=== PATIENT | female | born 2000 | race Caucasian/White ===

== ENCOUNTER 2021-05-05 11:22 | Outpatient (REF) | payer OTHER, SELFPAY ==
[2021-05-05 14:25] LABS: Alanine Aminotransferase 14 U/L (0-31); Albumin Level 4.3 g/dL (3.5-5.0); Alkaline Phosphatase 49 U/L (39-117); Anion Gap 13 (12-20); Aspartate Amino Transferase 15 U/L (5-31); Bilirubin Total 0.7 mg/dL (0.0-1.0); Blood Urea Nitrogen 8 mg/dL (9-16); Calcium 9.5 mg/dL (8.4-10.2); Carbon Dioxide 25 mmol/L (22-29); Chloride 105 mmol/L (96-108); Cholesterol 207 mg/dL; Estimated Glomerular Filt Rate > 60; Glucose Fasting 99 mg/dL (60-99); HDL Cholesterol 48 mg/dL; LDL Cholesterol Calculated 141 mg/dl; Potassium 4.8 mmol/L (3.3-5.1); Sodium 138 mmol/L (135-145); Total Protein 7.3 g/dL (6.5-8.0); Triglycerides 93 mg/dL
[2021-05-05 14:47] LABS: TSH reflex Free T4 0.82 uIU/mL (0.32-4.0)
[2021-05-05 17:18] LABS: Appearance Urine CLEAR; Color Urine YELLOW; Glucose Urine UA NEG (NEG); Leukocyte Esterase Urine NEG (NEG); Nitrite Urine NEG (NEG); PH 6.5 (5.0-8.0); Urine Blood NEG (NEG); Urine Ketones NEG (NEG); Urine Protein NEG (NEG-TRACE)
== END 2021-05-05 11:23 | disposition home or self-care (01) ==
LOC: HO.HMGCLDS 11:22
PROVIDERS: PCP Nurse Practitioner Family; Visit Provider Nurse Practitioner Family
DX: Z00.00 Encounter for general adult medical examination without abnormal findings (principal)
CPT/HCPCS: 36415; 80053; 80061; 81003; 84443

== ENCOUNTER 2021-05-12 09:49 | Outpatient (REF) | payer OTHER, SELFPAY ==
[2021-05-12 16:38] LABS: CT PCR NOT DETECTED (Not Detect.); NG PCR NOT DETECTED (Not Detect.)
== END 2021-05-12 09:50 | disposition home or self-care (01) ==
LOC: HO.LAB 09:49
PROVIDERS: PCP Nurse Practitioner Family; Visit Provider Advanced Practice Midwife
DX: Z01.411 Encounter for gynecological examination (general) (routine) with abnormal findings (principal); Z11.3 Encounter for screening for infections with a predominantly sexual mode of transmission; R10.2 Pelvic and perineal pain; R14.0 Abdominal distension (gaseous); Z20.2 Contact with and (suspected) exposure to infections with a predominantly sexual mode of transmission
CPT/HCPCS: 87491; 87591; 88142

== ENCOUNTER 2021-06-03 10:47 | Outpatient (REF) | payer OTHER, SELFPAY ==
--- NOTE | ~2021-06-03 | US_ITS ---
EXAMINATION: US PELVIS CLINICAL INFORMATION: Abdominal distention COMPARISON: None TECHNIQUE: Ultrasound of the pelvis is performed using both transabdominal and transvaginal transducers along with Doppler. Transvaginal imaging is performed due to inadequate visualization transabdominally. FINDINGS: The uterus is anteverted and measures 5.6 x 2.7 x 4.8 cm in dimension. No focal uterine lesion is seen. Endometrial thickness is normal measuring 0.2 cm. The ovaries are normal-appearing. The right ovary measures 1.9 x 1.9 x 2.2 cm. The left ovary measures 2 1 x 1.1 x 1.2 cm. There is no fluid in the pelvis. US/US pelvic and transvaginal IMPRESSION: Normal pelvic ultrasound.
== END 2021-06-03 10:48 | disposition home or self-care (01) ==
LOC: HO.US 10:47
PROVIDERS: PCP Nurse Practitioner Family; Visit Provider Advanced Practice Midwife
DX: R14.0 Abdominal distension (gaseous) (principal); R10.2 Pelvic and perineal pain
CPT/HCPCS: 76830; 76856

== ENCOUNTER → 2021-06-17 12:01 | Outpatient (BNVA) | payer OTHER, SELFPAY | PROVIDERS: PCP Nurse Practitioner Family; Visit Provider Advanced Practice Midwife ==

== ENCOUNTER 2023-04-07 09:07 | Outpatient (REF) | payer OTHER, SELFPAY | END 2023-04-07 09:08 | disposition home or self-care (01) | LOC: HO.HMGCLDS 09:07 | PROVIDERS: PCP Nurse Practitioner Family; Visit Provider Nurse Practitioner Family | DX: Z00.00 Encounter for general adult medical examination without abnormal findings (principal) | CPT/HCPCS: 36415; 80053; 84443; 85025 ==

== ENCOUNTER 2023-04-11 07:28 | Outpatient (AMB) | payer OTHER, SELFPAY ==
--- NOTE | 2023-04-11 07:34 | MHC.PC.OV ---
Vital Signs 04/11/23 07:35 Height 5 ft 6 in Weight 158 lb 6 oz BMI 25.6 BP 100/68 Blood Pressure Location Rt brachial Position Sitting Pulse 55 Pulse Source Pulse Oximeter Pulse Oximetry (%) 99 Oxygen Delivery Method Room Air Intake Visit Reasons: PE Allergies No Known Allergies Allergy (Verified 04/11/23 07:37) Medication List - Last Reconciled 04/11/23 by AZUCENA Nguyen No Known Home Meds Tobacco use date assessed: 04/11/23 Dental Screening Dental Screen Date: 04/11/23 Did you have a dental visit in the last 12 months?: Yes Did you have a dental problem in the last 6 months where you did not have access to dental care?: No Was dental information given to patient?: Patient has dentist HPI PE HPI Details Pt is here for a PE. Labs were already performed. Has a technology lab teacher. COUNTS INCLUDE 234 BEDS AT THE [facility] Medical History Migraine with aura Surgical History Hx of wisdom tooth extraction Family History Paternal Grandmother Substance use disorder Sister Mental health disorder Maternal Aunt Mental health disorder Social History Housing: House Alcohol intake: current Alcohol intake frequency: a few times a week Patient Tobacco Use Status: Never used Tobacco e-Cigarette/Vaping Use: Never Used Second Hand Smoke Exposure: No service: No Current occupational status: employed Current occupation: [employer] and works at [employer] Current occupational exposures/hazards: Yes Sexual orientation: Straight/Heterosexual Gender identity: Female Cognitive needs: No Hearing needs: No Vision needs: No Female Reproductive History Menstrual Age of Menarche: 11 Questionnaire PHQ-9 Over the last 2 weeks, how often have you been bothered by any of the following problems? 1. Little interest or pleasure in doing things: not at all 2. Feeling down, depressed, or hopeless: several days 3. Trouble falling or staying asleep, or sleeping too much: not at all 4. Feeling tired or having little energy: several days 5. Poor appetite or overeating: not at all 6. Feeling bad about yourself - or that you are a failure or have let yourself or your family down: not at all 7. Trouble concentrating on things, such as reading the newspaper or watching television: not at all 8. Moving or speaking so slowly that other people could have noticed. Or the opposite - being so fidgety or restless that you have been moving around a lot more than usual: not at all 9. Thoughts that you would be better off or of hurting yourself in some way: not at all Total score: 2 Depression Screening Interpretation: Negative Depression Screening Done: Yes Source: Developed by Drs. Cali Pruett, Libby Cooper, Yair Glover and colleagues, with an educational messi from [email or web address]. Thrive Questionnaire Date Thrive assessed: 04/11/23 I am a: Patient What is your living situation today?: I have a steady place to live Within the past 12 months, did the food you bought not last and you didn't have the money to get more?: Never true Within the past 12 months, did you worry whether your food would run out before you got money to buy more?: Never true Do you have trouble paying for medicines?: No Do you have trouble getting transportation to medical appointments?: No Do you have trouble paying your heating and electricity bill?: No Do you have trouble taking care of your child, family member or friend?: No Do you have trouble with day-to-day activities such as bathing, preparing meals, shopping, managing finances, etc.?: No Are you currently unemployed and looking for a job?: No Are you interested in more education?: No AUDIT C Alcohol Use Questionnaire (AUDIT-C) 1. How often do you have a drink containing alcohol?: 2-4 times a month 2. How many drinks containing alcohol do you have on a typical day when you are drinking?: 3 or 4 3. How often do you have six or more drinks on one occasion?: Never Total Score: 3 Score Reviewed/Action Taken: Yes TAMMI-7 AMB Questionnaire TAMMI-7 Date TAMMI - 7 assessed: 04/11/23 Feeling nervous, anxious, or on edge: 2 = More than half the days Not being able to stop or control worryin = Several days Worrying too much about different things: 1 = Several days Trouble relaxin = Several days Being so restless that it is hard to sit still: 1 = Several days Becoming easily annoyed or irritable: 1 = Several days Feeling afraid as if something awful might happen: 0 = Not at all Total TAMMI-7 score (0-4 normal; 5-9 mild; 10-14 moderate; 15-21 severe): 7 Source: Developed by Drs. Cali Pruett, Libby Cooper, Yair Glover and colleagues, with an educational messi from [email or web address]. TAMMI-7 Assessment Billing TAMMI-7 Assessment Tool: TAMMI-7 Assessment 69154 Review of Systems Const Denies chills and Denies fever(s) Eyes Denies blurry vision ENT Denies vertigo, Denies dizziness and Denies sore throat Card Denies chest pain at rest, Denies chest pain with activity, Denies diaphoresis, Denies dyspnea and Denies dyspnea on exertion Resp Denies cough, Denies dyspnea, Denies dyspnea on exertion and Denies wheezing GI Denies abdominal pain, Denies melena, Denies hematochezia, Denies constipation, Denies diarrhea and Denies loose stools Denies hematuria Musc Denies numbness and Denies tingling Skin/Breast Denies lesions Neuro Denies vertigo, Denies dizziness, Denies numbness and Denies tingling Psych Denies anxiety, Denies depression, Denies homicidal ideation, Denies suicidal ideation and Denies other (substance abuse) Aller/Immun Denies wheezing Physical exam (Primary Care) Vital Signs: Last Vital Signs Pulse 55 04/11/23 07:35 BP 100/68 04/11/23 07:35 Pulse Ox 99 04/11/23 07:35 Oxygen Delivery Method Room Air 04/11/23 07:35 BMI result Body Mass Index 25.6 Tobacco/Smoking Status: Tobacco use Status Tobacco use date assessed 04/11/23 04/11/23 07:39 Patient Tobacco Use Status Never used Tobacco 04/11/23 07:39 e-Cigarette/Vaping Use Never Used 04/11/23 07:39 PHQ-9: PHQ-9 Score PHQ-9: Total score 2 04/11/23 07:41 Depression Screening Interpretation: Negative Thrive Assessment: Date of Thrive Assessment Date Thrive assessed 04/11/23 04/11/23 07:41 Const General: cooperative Nutritional Appearance: well nourished Orientation/consciousness: patient oriented x3 HENMT Head: Yes normal to inspection, Yes normocephalic and Yes atraumatic Ears: TM's normal bilaterally Eyes General: appearance normal, both eyes and all related structures Alignment and Position: alignment normal and position normal Neck Neck: Yes normal visual inspection and Yes no lymphadenopathy Thyroid: Thyroid normal Resp Effort & Inspection: normal respiratory effort Auscultation: clear to auscultation bilaterally Cardio Rate: regular rate Rhythm: regular rhythm Heart sounds: S1 normal heart sound present, S2 normal heart sound present and no murmurs GI Palpation (GI): Soft to palpation and nontender Auscultation: normal bowel sounds Skin Rashes: no rashes Neuro General: patient oriented x3, moves all extremities, no focal motor deficits and deep tendon reflexes 2+ bilaterally Romberg Test: Negative Psych Appearance: grossly normal Mental Status: mental status grossly normal Speech and movement: Normal speech and movement present Affect: normal affect Attitude: cooperative Thought process: Normal thought process present Thought content: Normal thought content present Insight: Good insight present (Psych) Judgement: Good judgement present (Psych) Assessment and Plan Assessment & Plan (1) Physical exam: Code(s): Z00.00 - Encounter for general adult medical examination without abnormal findings Plan: Labs resulted Plan The patient agreed to the use of a medical office receptionist assistant for this encounter. Scribed for MARIANELA Moncada-ABEL by Cristina Peng medical office receptionist assistant, on 04/11/2023 at 07:55 EST Coding Level of Care Code Est Pt Prev Care 18-39y(36706) Diagnoses Physical exam Z00.00 Additional Codes TAMMI-7 Assessment Billing - TAMMI-7 Assessment Tool: TAMMI-7 Assessment 32358 ([id number])
[2023-04-11 07:35] VITALS: BP 100/68; PULSE 55; O2SAT 99; BMI 25.6
== END 2023-04-11 09:18 | disposition home or self-care (01) ==
PROVIDERS: Visit Provider Nurse Practitioner Family
DX: Z00.00 Encounter for general adult medical examination without abnormal findings (principal)
CPT/HCPCS: 99395

== ENCOUNTER 2023-04-11 08:06 | Outpatient (REF) | payer OTHER, SELFPAY | END 2023-04-11 08:07 | disposition home or self-care (01) | LOC: HO.HMGCLDS 08:06 | PROVIDERS: PCP Nurse Practitioner Family; Visit Provider Nurse Practitioner Family | DX: Z00.00 Encounter for general adult medical examination without abnormal findings (principal); Z13.220 Encounter for screening for lipoid disorders | CPT/HCPCS: 36415; 80061 ==

== ENCOUNTER 2023-07-04 08:39 | Outpatient (AMB) | payer OTHER, SELFPAY ==
[2023-07-04 09:32] VITALS: BP 120/78; PULSE 83; TEMP 36.9; O2SAT 99; BMI 26.1
--- NOTE | 2023-07-04 09:32 | AM.OFFWIN_ITS ---
Intake Vital Signs 07/04/23 09:32 Height 5 ft 6 in Weight 162 lb BMI 26.1 BP 120/78 Blood Pressure Location Lt brachial Position Sitting Pulse 83 Pulse Source Pulse Oximeter Temp 98.5 F Temp Source Temporal Artery Scan Pulse Oximetry (%) 99 Oxygen Delivery Method Room Air Intake Visit Reasons: EP sore throat headache stuffy [id number] Intake Note: pt is here today for sore throat headache started yesterday Patient Tobacco Use Status: Never used Tobacco Allergies No Known Allergies Allergy (Verified 07/04/23 10:16) Medication List - Last Reconciled 07/04/23 by Jonnathan Tobias MD No Known Home Meds Do you need a note to return to daycare/school/sports/work: Yes [facility] Medical History Migraine with aura Surgical History Hx of wisdom tooth extraction Family History Paternal Grandmother Substance use disorder Sister Mental health disorder Maternal Aunt Mental health disorder Social History Housing: House Alcohol intake: current Alcohol intake frequency: a few times a week Patient Tobacco Use Status: Never used Tobacco e-Cigarette/Vaping Use: Never Used Second Hand Smoke Exposure: No service: No Current occupational status: employed Current occupation: [employer] and works at [employer] Current occupational exposures/hazards: Yes Sexual orientation: Straight/Heterosexual Gender identity: Female Cognitive needs: No Hearing needs: No Vision needs: No Female Reproductive History Menstrual Age of Menarche: 11 Physical Exam Vital Signs: Last Vital Signs Temp 98.5 F 07/04/23 09:32 Pulse 83 07/04/23 09:32 BP 120/78 07/04/23 09:32 Pulse Ox 99 07/04/23 09:32 Oxygen Delivery Method Room Air 07/04/23 09:32 BMI result Body Mass Index 26.1 Results AMB Rapid Strep AMB Rapid Strep Negative Last Edit by Praneeth Caruso CMA on 07/04/23 09 :51 Results Reviewed Results Reviewed: Laboratory Last Values Strep Scn [facility] Negative 07/04/23 09:51 Assessment & Plan Assessment & Plan Orders: Orders AMB Rapid Strep Screen Today Z13.9 - Encounter for screening, unspecified Coding
--- NOTE | 2023-07-04 09:40 | AM.OFFWIN_ITS ---
Intake Vital Signs 07/04/23 09:32 Height 5 ft 6 in Weight 162 lb BMI 26.1 BP 120/78 Blood Pressure Location Lt brachial Position Sitting Pulse 83 Pulse Source Pulse Oximeter Temp 98.5 F Temp Source Temporal Artery Scan Pulse Oximetry (%) 99 Oxygen Delivery Method Room Air Intake Visit Reasons: EP sore throat headache stuffy [id number] Patient Tobacco Use Status: Never used Tobacco Allergies No Known Allergies Allergy (Verified 07/04/23 10:16) Medication List - Last Reconciled 07/04/23 by Jonnathan Tobias MD No Known Home Meds HPI EP sore throat headache stuffy [id number] HPI Details Patient presents for a sick visit. Reporting symptoms of sinus congestion, sore throat and difficulty swallowing. 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 [facility] Medical History Migraine with aura Surgical History Hx of wisdom tooth extraction Family History Paternal Grandmother Substance use disorder Sister Mental health disorder Maternal Aunt Mental health disorder Social History Housing: House Alcohol intake: current Alcohol intake frequency: a few times a week Patient Tobacco Use Status: Never used Tobacco e-Cigarette/Vaping Use: Never Used Second Hand Smoke Exposure: No service: No Current occupational status: employed Current occupation: [employer] and works at [employer] Current occupational exposures/hazards: Yes Sexual orientation: Straight/Heterosexual Gender identity: Female Cognitive needs: No Hearing needs: No Vision needs: No Female Reproductive History Menstrual Age of Menarche: 11 Physical Exam Vital Signs: Last Vital Signs Temp 98.5 F 07/04/23 09:32 Pulse 83 07/04/23 09:32 BP 120/78 07/04/23 09:32 Pulse Ox 99 07/04/23 09:32 Oxygen Delivery Method Room Air 07/04/23 09:32 BMI result Body Mass Index 26.1 Const General: cooperative and healthy appearing Nutritional Appearance: well nourished Orientation/consciousness: patient oriented x3 Limitations: no limitations HEENT Head: Yes normal to inspection Eyes General: appearance normal, both eyes and all related structures Neck Neck: Yes normal visual inspection Chest Chest palpation & inspection: normal palpation of entire chest wall Resp Effort & Inspection: normal respiratory effort Neuro General: patient oriented x3 Results AMB Rapid Strep AMB Rapid Strep Negative Last Edit by Praneeth Caruso CMA on 07/04/23 09 :51 Results Reviewed Results Reviewed: Laboratory Last Values Strep Scn [facility] Negative 07/04/23 09:51 Assessment & Plan Assessment & Plan (1) Upper respiratory tract infection: Code(s): J06.9 - Acute upper respiratory infection, unspecified Plan: Increase fluid intake. Tylenol for aches and pains. If symptoms worsen, follow-up here for a recheck. Strep test was negative. No antibiotics needed. If symptoms worsen to follow-up here. Orders: Orders AMB Rapid Strep Screen Today Z13.9 - Encounter for screening, unspecified Coding Level of Care Code Est Pt Level 3 (05454) Diagnoses Upper respiratory tract infection J06.9
== END 2023-07-04 10:11 | disposition home or self-care (01) ==
PROVIDERS: PCP Nurse Practitioner Family; Visit Provider Internal Medicine
DX: J06.9 Acute upper respiratory infection, unspecified (principal); J02.9 Acute pharyngitis, unspecified
CPT/HCPCS: 87880; 99213

== ENCOUNTER 2024-05-09 09:35 | Outpatient (REF) | payer OTHER, SELFPAY ==
[2024-05-09 13:29] LABS: MANUAL DIFF FLAG NO
[2024-05-09 13:37] LABS: Basophils Percent Auto 0.8 % (0-2); Eosinophils Percent Auto 1.1 % (0-4); Hematocrit 40.7 % (37.0-47.0); Hemoglobin 14.2 g/dl (12.0-16.0); Imm Gran Abs Auto 0.01 X10*3/uL (0.00-0.03); Imm Gran Pct Auto 0.3 % (0.0-0.4); Lymphocytes Absolute Auto 1.3 X10*3/uL (1.2-4.9); Lymphocytes Percent Auto 34.3 % (20-40); Mean Corpuscular HGB Conc 34.9 g/dl (31.0-35.0); Mean Corpuscular Hemoglobin 31.2 pg (27.0-33.0); Mean Corpuscular Volume 89.5 fL (80.0-98.0); Mean Platelet Volume 9.9 fL (9.4-12.3); Monocytes Absolute Auto 0.4 X10*3/uL (0.1-1.2); Monocytes Percent Auto 9.8 % (2-11); Neutrophils Percent Auto 53.7 % (45-73); Platelet Count 284 X10*3/uL (160-400); Red Blood Count 4.55 X10*6/uL (4.20-5.50); Red Cell Distribution Width 11.8 % (11.0-16.0); White Blood Count 3.7 X10*3/uL (4.8-10.8)
[2024-05-09 13:59] LABS: Estimated Average Glucose 91 mg/dL; Hemoglobin A1c % 4.8 % (<6.0); Total Hemoglobin (HGBA1C) 3727.5546 umol/L
[2024-05-09 14:06] LABS: Alanine Aminotransferase 15 U/L (0-31); Albumin Level 4.1 g/dL (3.5-5.0); Alkaline Phosphatase 39 U/L (39-117); Anion Gap 10 (12-20); Aspartate Amino Transferase 18 U/L (5-31); Bilirubin Total 0.7 mg/dL (0.0-1.0); Blood Urea Nitrogen 11 mg/dL (9-16); Calcium 9.3 mg/dL (8.4-10.2); Carbon Dioxide 23 mmol/L (22-29); Chloride 109 mmol/L (96-108); Cholesterol 171 mg/dL (<200); Estimated Glomerular Filt Rate > 60; Glucose Random 84 mg/dL (60-115); HDL Cholesterol 59 mg/dL (>40); LDL Cholesterol Calculated 105 mg/dL (<100); Potassium 4.3 mmol/L (3.3-5.1); Sodium 138 mmol/L (135-145); Triglycerides 35 mg/dL (<150)
[2024-05-09 14:22] LABS: TSH reflex Free T4 0.82 uIU/mL (0.32-4.0)
[2024-05-10 04:05] LABS: HBS Num1 25.65 mIU/mL (0-7.99); ~Hepatitis B Surface Antibody REACTIVE (Nonreactive)
[2024-05-10 08:39] LABS: Varicella IgG Antibody 2.28 S/CO
[2024-05-10 08:43] LABS: Mumps Virus IgG Antibody <9.00 AU/mL
== END 2024-05-09 09:36 | disposition home or self-care (01) ==
LOC: HO.HMGCLDS 09:35
PROVIDERS: PCP Nurse Practitioner Family; Referring Provider Nurse Practitioner Family; Visit Provider Nurse Practitioner Family
DX: Z00.00 Encounter for general adult medical examination without abnormal findings (principal); Z28.39 Other underimmunization status; Z13.1 Encounter for screening for diabetes mellitus
CPT/HCPCS: 36415; 80053; 80061; 83036; 84443; 85025; 86706; 86735; 86762; 86765; 86787; 96127

== ENCOUNTER 2024-05-09 09:35 | Outpatient (AMB) | payer OTHER, SELFPAY ==
--- NOTE | 2024-05-09 09:39 | A.OFFPC_ITS ---
Vital Signs 05/09/24 09:44 Height 5 ft 6 in Weight 160 lb 4 oz BMI 25.9 BP 118/72 Blood Pressure Location Rt brachial Position Sitting Pulse 74 Pulse Source Pulse Oximeter Pulse Oximetry (%) 98 Oxygen Delivery Method Room Air Intake Visit Reasons: Annual PE Intake Note: Pt is here today for her Annual Physical. Allergies No Known Allergies Allergy (Verified 05/09/24 09:44) Medication List - Last Reconciled 05/09/24 by Ernestina Bhatt NP No Known Home Meds Tobacco use date assessed: 05/09/24 Dental Screening Dental Screen Date: 05/09/24 Did you have a dental visit in the last 12 months?: Yes Did you have a dental problem in the last 6 months where you did not have access to dental care?: No Was dental information given to patient?: Patient has dentist HPI HPI Comments History of Present Illness Details 23 y/o female patient who [facility]. Patient of [facility] [place]. Healthy denies any medical problems. Does not take any medications. She works at [employer] [facility] Medical History Migraine with aura Surgical History Hx of wisdom tooth extraction Family History Paternal Grandmother Substance use disorder Sister Mental health disorder Maternal Aunt Mental health disorder Social History Housing: House Alcohol intake: current Alcohol intake frequency: a few times a week Patient Tobacco Use Status: Never used Tobacco e-Cigarette/Vaping Use: Never Used Second Hand Smoke Exposure: No service: No Current occupational status: employed Current occupation: [employer] and works at [employer] Current occupational exposures/hazards: Yes Sexual orientation: Straight/Heterosexual Gender identity: Female Cognitive needs: No Hearing needs: No Vision needs: No Female Reproductive History Menstrual Age of Menarche: 11 Questionnaire PHQ-9 Over the last 2 weeks, how often have you been bothered by any of the following problems? 1. Little interest or pleasure in doing things: not at all 2. Feeling down, depressed, or hopeless: not at all 3. Trouble falling or staying asleep, or sleeping too much: several days 4. Feeling tired or having little energy: several days 5. Poor appetite or overeating: not at all 6. Feeling bad about yourself - or that you are a failure or have let yourself or your family down: not at all 7. Trouble concentrating on things, such as reading the newspaper or watching television: not at all 8. Moving or speaking so slowly that other people could have noticed. Or the opposite - being so fidgety or restless that you have been moving around a lot more than usual: not at all 9. Thoughts that you would be better off or of hurting yourself in some way: not at all Total score: 2 Depression Screening Interpretation: Negative Depression Screening Done: Yes 06562 - PHQ-9 Billing: Yes Source: Developed by Drs. Cali Pruett, Libby Cooper, Yair Glover and colleagues, with an educational messi from [employer]. Thrive Questionnaire Date Thrive assessed: 05/09/24 I am a: Patient What is your living situation today?: I have a steady place to live Within the past 12 months, did the food you bought not last and you didn't have the money to get more?: Never true Within the past 12 months, did you worry whether your food would run out before you got money to buy more?: Never true Do you have trouble paying for medicines?: No Do you have trouble getting transportation to medical appointments?: No Do you have trouble paying your heating and electricity bill?: No Do you have trouble taking care of your child, family member or friend?: No Do you have trouble with day-to-day activities such as bathing, preparing meals, shopping, managing finances, etc.?: No Are you currently unemployed and looking for a job?: No Are you interested in more education?: Yes Please select the resources that you would like help with: None Currently or been in a relationship where the following occur: No concerns reported THRIVE Score: 0 AUDIT C Alcohol Use Questionnaire (AUDIT-C) 1. How often do you have a drink containing alcohol?: 2-4 times a month 2. How many drinks containing alcohol do you have on a typical day when you are drinking?: 3 or 4 3. How often do you have six or more drinks on one occasion?: Less than monthly Total Score: 4 Score Reviewed/Action Taken: Yes TAMMI-7 AMB Questionnaire TAMMI-7 Date TAMMI - 7 assessed: 05/09/24 Feeling nervous, anxious, or on edge: 1 = Several days Not being able to stop or control worryin = Not at all Worrying too much about different things: 1 = Several days Trouble relaxin = Several days Being so restless that it is hard to sit still: 0 = Not at all Becoming easily annoyed or irritable: 0 = Not at all Feeling afraid as if something awful might happen: 0 = Not at all Total TAMMI-7 score (0-4 normal; 5-9 mild; 10-14 moderate; 15-21 severe): 3 Source: Developed by Drs. Cali Pruett, Libby Cooper, Yair Glover and colleagues, with an educational messi from [employer]. TAMMI-7 Assessment Billing TAMMI-7 Assessment Tool: TAMMI-7 Assessment 57848 Review of Systems Const All systems reviewed & are unremarkable except as noted in HPI and below Physical exam (Primary Care) Vital Signs: Last Vital Signs Pulse 74 05/09/24 09:44 BP 118/72 05/09/24 09:44 Pulse Ox 98 05/09/24 09:44 Oxygen Delivery Method Room Air 05/09/24 09:44 BMI result Body Mass Index 25.9 Tobacco/Smoking Status: Tobacco use Status Tobacco use date assessed 05/09/24 05/09/24 09:45 Patient Tobacco Use Status Never used Tobacco 05/09/24 09:45 e-Cigarette/Vaping Use Never Used 05/09/24 09:45 PHQ-9: PHQ-9 Score PHQ-9: Total score 2 05/09/24 10:31 Depression Screening Interpretation: Negative Thrive Assessment: Date of Thrive Assessment Date Thrive assessed 05/09/24 05/09/24 09:45 Currently or been in a relationship where the following occur: No concerns reported Const General: cooperative, comfortable and no acute distress Orientation/consciousness: patient oriented x3 HENMT Head: Yes normocephalic Ears: external ears normal and TM's normal bilaterally General nose exam: Normal external nose present and Normal nasal mucous membranes and turbinates present Face and sinus: Yes sinuses nontender Mouth: moist mucous membranes Throat: Yes tonsils normal and Yes uvula midline Eyes Pupils: Equal, round and reactive pupils present EOM: EOMs intact bilaterally Direct Ophthalmoscopy: normal light reflex Neck Neck: Yes full ROM and Yes no lymphadenopathy Thyroid: Thyroid normal Lymphatic: no lymphadenopathy noted Resp Effort & Inspection: normal respiratory effort and able to speak in complete sentences Auscultation: clear to auscultation bilaterally, no crackles, no rales, no rhonchi and no wheezes Cardio Heart sounds: S1 normal heart sound present and S2 normal heart sound present GI Inspection: Yes normal to inspection Palpation (GI): Soft to palpation, not firm, nontender, no guarding, not rigid and No hepatosplenomegaly present Auscultation: normal bowel sounds Rectal Exam - Female: deferred General: Yes no CVA tenderness Back/Spine/Pelvis Back: no CVA tenderness Skin General skin exam: no rashes or lesions noted Neuro General: patient oriented x3, gait normal and moves all extremities Cranial nerves: Yes Equal, round and reactive pupils present Motor exam (neuro): 5/5 motor strength present throughout Extrem General: Yes full ROM and Yes capillary refill normal Psych Speech and movement: Normal speech and movement present Coding Level of Care Code Est Pt Prev Care 18-39y(90468) Diagnoses Encounter for routine adult health examination without abnormal findings Z00. Additional Codes TAMMI-7 Assessment Billing - TAMMI-7 Assessment Tool: TAMMI-7 Assessment 86665 ([id number]) PHQ-9 - 51019 - PHQ-9 Billing: Yes ([id number]) Assessment & Plan Assessment & Plan (1) Encounter for routine adult health examination without abnormal findings: Code(s): Z00.00 - Encounter for general adult medical examination without abnormal findings Plan: Normal exam Orders: Orders Complete Blood Count Auto Diff Today Z00.00 - Encounter for general adult medical examination without abnormal findings Hemoglobin A1c Today Z00.00 - Encounter for general adult medical examination without abnormal findings Lipid Panel Today Z00.00 - Encounter for general adult medical examination without abnormal findings Comprehensive Met. Panel Today Z00.00 - Encounter for general adult medical examination without abnormal findings TSH reflex Free T4 Today Z00.00 - Encounter for general adult medical examination without abnormal findings
[2024-05-09 09:44] VITALS: BP 118/72; PULSE 74; O2SAT 98; BMI 25.9
== END 2024-05-09 12:10 | disposition home or self-care (01) ==
LOC: HO.HMCC 09:36
PROVIDERS: PCP Nurse Practitioner Family; Visit Provider Nurse Practitioner Family
DX: Z00.00 Encounter for general adult medical examination without abnormal findings (principal)

== ENCOUNTER 2025-05-22 08:05 | Outpatient (REF) | payer OTHER, SELFPAY ==
[2025-05-22 10:19] LABS: MANUAL DIFF FLAG NO
[2025-05-22 10:25] LABS: Hematocrit 42.2 % (37.0-47.0); Hemoglobin 14.4 g/dl (12.0-16.0); Imm Gran Abs Auto 0.00 X10*3/uL (0.00-0.03); Imm Gran Pct Auto 0.0 % (0.0-0.4); Lymphocytes Absolute Auto 1.3 X10*3/uL (1.2-4.9); Mean Corpuscular HGB Conc 34.1 g/dl (31.0-35.0); Mean Corpuscular Hemoglobin 31.0 pg (27.0-33.0); Mean Corpuscular Volume 90.9 fL (80.0-98.0); NRBC Abs Auto 0.000 X10*3/uL (0.0-0.012); NRBC Pct Auto 0.0 /100WBC (0.0-0.2); Platelet Count 354 X10*3/uL (160-400); Red Blood Count 4.64 X10*6/uL (4.20-5.50); White Blood Count 4.1 X10*3/uL (4.8-10.8)
[2025-05-22 10:54] LABS: Alanine Aminotransferase 16 U/L (0-31); Albumin Level 4.6 g/dL (3.5-5.0); Alkaline Phosphatase 45 U/L (39-117); Anion Gap 10 (12-20); Aspartate Amino Transferase 18 U/L (5-31); Blood Urea Nitrogen 17 mg/dL (9-16); Calcium 9.4 mg/dL (8.4-10.2); Carbon Dioxide 25 mmol/L (22-29); Chloride 108 mmol/L (96-108); Cholesterol 188 mg/dL (<200); Estimated Glomerular Filt Rate > 60; HDL Cholesterol 65 mg/dL (>40); Potassium 4.3 mmol/L (3.3-5.1); Sodium 139 mmol/L (135-145); Total Protein 7.3 g/dL (6.5-8.0); Triglycerides 55 mg/dL (<150)
== END 2025-05-22 08:06 | disposition home or self-care (01) ==
LOC: HO.HMGCLDS 08:05
PROVIDERS: PCP Nurse Practitioner Family; Visit Provider Nurse Practitioner Family
DX: Z00.00 Encounter for general adult medical examination without abnormal findings (principal)
CPT/HCPCS: 36415; 80053; 80061; 84443; 85025; 96127

== ENCOUNTER 2025-05-22 08:05 | Outpatient (AMB) | payer OTHER, SELFPAY ==
[2025-05-22 08:12] VITALS: BP 118/72; PULSE 94; O2SAT 97; BMI 24.9
--- NOTE | 2025-05-22 08:12 | A.OFFPC_ITS ---
Vital Signs 05/22/25 08:12 Height 5 ft 6 in Weight 154 lb BMI 24.9 BP 118/72 Blood Pressure Location Lt brachial Position Sitting Pulse 94 Pulse Source Pulse Oximeter Pulse Oximetry (%) 97 Intake Visit Reasons: PE Accompanied by: Self / Same As Patient Allergies No Known Allergies Allergy (Verified 05/22/25 08:29) Medication List - Last Reconciled 05/22/25 by AZUCENA Nguyen No Known Home Meds Tobacco use date assessed: 05/22/25 Dental Screening Dental Screen Date: 05/22/25 Did you have a dental visit in the last 12 months?: Yes Did you have a dental problem in the last 6 months where you did not have access to dental care?: No Was dental information given to patient?: Patient has dentist HPI PE HPI Details History of Present Illness The patient is a 24 year old individual presenting for a physical exam. The patient reports feeling well overall and has a service desk director for Papanicolaou tests. Health Maintenance - The patient completes Pap smears with a service desk director. - Fasting labs will be obtained today. 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 Review of Systems - General: The patient reports feeling w ell overall. -denies any cp, sob, fevers, chills, abd pains, blood in stool, constipation, diarrhea, SI or HI Physical Exam General: Cooperative, healthy appearing, comfortable, no acute distress and well developed Orientation: Patient oriented x3 Limitations: No limitations Head: Normal to inspection Ears: Hearing grossly normal bilaterally Nose: Normal external nose present Face and sinus: Normal facial exam Eyes: Appearance normal, both eyes and all related structures Neck: Normal visual inspection and Yes full ROM Respiratory: Normal respiratory effort and able to speak in complete sentences. Clear to auscultation bilaterally Cardiovascular: Regular rate and rhythm. Normal S1 and S2 GI: Normal to inspection. Soft to palpation and nontender Skin: No rashes or lesions noted Neuro: Patient oriented x3 Extremities: Normal to inspection Results Plan 1. Encounter for general adult medical e xamination without abnormal findings Z00.00 Fasting labs will be obtained today, and a follow-up will be conducted to discuss the results Discussion Notes I advised the patient that we will obtain fasting labs today. I will follow up with the patient when the results are available. Patient Instructions - Please go to the lab to have your bloo d drawn today while you are fasting. - We will contact you with your lab resu lts when they are ready. [facility] Medical History Migraine with aura Surgical History Hx of wisdom tooth extraction Family History Paternal Grandmother Substance use disorder Sister Mental health disorder Maternal Aunt Mental health disorder Social History Housing: House Alcohol intake: current Alcohol intake frequency: a few times a week Patient Tobacco Use Status: Never used Tobacco e-Cigarette/Vaping Use: Never Used Second Hand Smoke Exposure: No service: No Current occupational status: employed Current occupation: [employer] and works at [employer] Current occupational exposures/hazards: Yes Sexual orientation: Straight/Heterosexual Gender identity: Female Cognitive needs: No Hearing needs: No Vision needs: No Female Reproductive History Menstrual Age of Menarche: 11 Questionnaire PHQ-9 Over the last 2 weeks, how often have you been bothered by any of the following problems? 1. Little interest or pleasure in doing things: not at all 2. Feeling down, depressed, or hopeless: not at all 3. Trouble falling or staying asleep, or sleeping too much: several days 4. Feeling tired or having little energy: several days 5. Poor appetite or overeating: not at all 6. Feeling bad about yourself - or that you are a failure or have let yourself or your family down: not at all 7. Trouble concentrating on things, such as reading the newspaper or watching television: not at all 8. Moving or speaking so slowly that other people could have noticed. Or the opposite - being so fidgety or restless that you have been moving around a lot more than usual: not at all 9. Thoughts that you would be better off or of hurting yourself in some way: not at all Total score: 2 Depression Screening Interpretation: Negative Depression Screening Done: Yes 78711 - PHQ-9 Billing: Yes Source: Developed by Drs. Cali Pruett, Libby Cooper, Yair Glover and colleagues, with an educational messi from [employer]. Thrive Questionnaire Date Thrive assessed: 05/21/25 I am a: Patient What is your living situation today?: I have a steady place to live Within the past 12 months, did the food you bought not last and you didn't have the money to get more?: Never true Within the past 12 months, did you worry whether your food would run out before you got money to buy more?: Never true Do you have trouble paying for medicines?: No Do you have trouble getting transportation to medical appointments?: No Do you have trouble paying your heating and electricity bill?: No Do you have trouble taking care of your child, family member or friend?: No Do you have trouble with day-to-day activities such as bathing, preparing meals, shopping, managing finances, etc.?: No Are you currently unemployed and looking for a job?: No Are you interested in more education?: Yes Please select the resources that you would like help with: None Currently or been in a relationship where the following occur: No concerns reported THRIVE Score: 0 AUDIT C Alcohol Use Questionnaire (AUDIT-C) 1. How often do you have a drink containing alcohol?: 2-4 times a month 2. How many drinks containing alcohol do you have on a typical day when you are drinking?: 1 or 2 3. How often do you have six or more drinks on one occasion?: Less than monthly Total Score: 3 Score Reviewed/Action Taken: Yes TAMMI-7 AMB Questionnaire TAMMI-7 Date TAMMI - 7 assessed: 05/22/25 Feeling nervous, anxious, or on edge: 1 = Several days Not being able to stop or control worryin = Not at all Worrying too much about different things: 0 = Not at all Trouble relaxin = Several days Being so restless that it is hard to sit still: 1 = Several days Becoming easily annoyed or irritable: 1 = Several days Feeling afraid as if something awful might happen: 0 = Not at all Total TAMMI-7 score (0-4 normal; 5-9 mild; 10-14 moderate; 15-21 severe): 4 Source: Developed by Libby Sarabia B.W. Kenneth, Yair Glover and colleagues, with an educational messi from [employer]. TAMMI-7 Assessment Billing TAMMI-7 Assessment Tool: TAMMI-7 Assessment 88581 Physical exam (Primary Care) Vital Signs: Last Vital Signs Pulse 94 05/22/25 08:12 BP 118/72 05/22/25 08:12 Pulse Ox 97 05/22/25 08:12 BMI result Body Mass Index 24.9 Tobacco/Smoking Status: Tobacco use Status Tobacco use date assessed 05/22/25 05/22/25 08:16 Patient Tobacco Use Status Never used Tobacco 05/22/25 08:16 e-Cigarette/Vaping Use Never Used 05/22/25 08:16 PHQ-9: PHQ-9 Score PHQ-9: Total score 2 05/22/25 08:16 Depression Screening Interpretation: Negative Thrive Assessment: Date of Thrive Assessment Date Thrive assessed 05/21/25 05/22/25 08:16 Currently or been in a relationship where the following occur: No concerns reported Coding Level of Care Code Est Pt Prev Care 18-39y(78661) Diagnoses Physical exam Z00.00 Additional Codes TAMMI-7 Assessment Billing - TAMMI-7 Assessment Tool: TAMMI-7 Assessment [id number] ([id number]) PHQ-9 - 01281 - PHQ-9 Billing: Yes ([id number]) Assessment & Plan Assessment & Plan (1) Physical exam: Code(s): Z00.00 - Encounter for general adult medical examination without abnormal findings Category: Medical Plan . Orders: Orders Comprehensive [place]. Panel Fast Today Z00.00 - Encounter for general adult medical examination without abnormal findings UA CC w/rflx Micro + Cult Today Z00.00 - Encounter for general adult medical examination without abnormal findings Complete Blood Count Auto Diff Today Z00.00 - Encounter for general adult medical examination without abnormal findings TSH reflex Free T4 Today Z00.00 - Encounter for general adult medical examination without abnormal findings Lipid Panel Today Z00.00 - Encounter for general adult medical examination without abnormal findings
--- OUTSIDE RECORDS SUMMARY | 2025-05-22 08:23 | XMS_ITS | Clinical Summary ---
Author Organization [facility] Address [address] [place] [id number] Phone Care Team Providers Care Weapons Officer [employer] Name Role Phone Unavailable Primary Care Provider Unavailabl e Allergies No known active allergies Medications Cryselle-28 0.3-30 MG-MCG per tabletIndication s:Premenstrual dysphoric disorder Take 1 tablet by mouth once daily. 90 tablet 3 01/08/2020 Active Active Problems Problem Noted Date Diagnosed Date Premenstrual dysphoric disorder 07/10/2017 Immunizations Immunization Administration Dates Next Due DTaP 10/07/2003, 0,05/10/1999,03/15,01/06/1999 H1N1 05/22/2009 HPV, Quadrivalent 01/07/2013,03/24/2008,01/24/20 08 Hep B, ped/adol 05/10/1999,1998,1998 Hib (PRP-T) 11/16/1999, 9,03/15/1999,01/06 IPV 10/07/2003, 0,03/15/1999,01/06 Influenza, injectable, quadrivalent 07/04,06/15/2013,04/02/2011,05/26,10/06/2009 Influenza, injectable, quadr ivalent, preservative free 05/24/2017,02/24/2015,04/05/2014 Influenza, injectable,jennifer valent, preservative free, pediatric 07/19/2012 MMR 10/07/2003,04/03/2000 Meningococcal Conj (Menactra) MCV4P 02/24/2015,0 08/10/2010 PPD Test 09/14/2019,11/29/2018,12/07/2017 Pneumococcal Conjugate 08/02/2000 Rotavirus Pentavalent 01/06/1999 Tdap 08/10/2010 Varicella 04/02/2011,11/16/1999 Family History Medical History Relation Name Comments Cancer (Adult Onset) Maternal Grandfather Cancer (Adult Onset) Maternal Grandmother Congenital heart disease Other Abnormal EKG Paternal Grandfather Rheum arthritis Paternal Grandfather Relation Name Status Comments Father healthy. had br ain CT scan and was negative for aneurysms Maternal Grandfather Maternal Grandmother cancer, brain Mother fibromyalgia, o steochondritis desicans, migraines, Other Siblings: healt hy, 1 with ASD repair Paternal Grandfather Alive Paternal Grandmother Alive brain a nuerysms Social History Tobacco Use Types Packs/Day Years Used Date Smoking Tobacco: Never Smokeless Tobacco: Never Alcohol Use Standard Drinks/Week Comments Yes 0 (1 standard drink = 0.6 oz pure alcohol) 1-2 drinks per month, denies black outs or unsafe situations Hunger/Food Answer Date Recorded In the last 12 months, did y ou or your family ever eat less than you felt you should because there wasn't enough money for food? No 01/07/2020 Stable Housing Answer Date Recorded Are you worried that in the next 2 months you may not have stable housing? No 01/07/2020 Transportation Concerns Answer Date Rec orded In the last 12 months, have you or your family ever had to go without healthcare because you didn't have a way to get there? No 01/07/2020 Hazards in Home Answer Date Recorded Think about the place you li ve. Do you have problems with any of the following? Pests (mice or roaches), mold, no/not working smoke detectors, water leaks, no window guards. No 2019 Financing Utilities Answer Date Recorde d In the last 12 months, has t he electric, gas, oil, or water company threatened to shut off your services in your home? No 01/07/2020 Safety at Home Answer Date Recorded Are you or your family worried about feeling saf e in your home? No 01/07/2020 Outside Support Answer Date Recorded Do you feel that you need mo re support from other people or programs to help you care for yourself or your family? No 01/07/2020 Understanding Health Concerns Answer Da te Recorded Do you need help understandi ng your or your child's healthcare needs (diagnosis, medications, plan, etc.)? No 01/07/2020 Financing Health Concerns Answer Date R ecorded In the last 12 months, was t here a time when your child needed to see a doctor or get medications or supplies but could not because of cost? No 01/07/2020 Missing School or Work Answer Date Elias rded Did you or your child miss s chool or work because of a health problem that could have been avoided? No 01/07/2020 Comments No Sex and Gender Information Value Date Recorded Sex Assigned at Female 01/07/2020 10:09 AM EDT Legal Sex Female 6:11 PM EDT Gender Identity Female 01/07/2020 10:09 AM EDT Sexual Orientation Not on file Last Filed Vital Signs Vital Sign Reading Time Taken Comments Blood Pressure 120/72 01/07/2020 9:58 AM EDT Pulse - - Temperature 36.3 C (97.4 F) 01/01/2019 5:21 PM EDT Respiratory Rate - - Oxygen Saturation - - Inhaled Oxygen Concentration - - Weight 74.6 kg (164 lb 6 oz) 01/07/2020 9:58 AM EDT Height 167.6 cm (5' 6 ) 01/07/2020 9:58 AM EDT Body Mass Index 26.53 01/07/2020 9:58 AM EDT Plan of Treatment Health Maintenance Due Date Last Done Comments DTaP,Tdap,and Td Vaccines (7 - Td or Tdap) 08/10/2020 08/10/2010, 10/07/2003, 04/03/2000, Additional history exists Influenza Vaccines (#1) 2025 06/01/20, 04/09/2020, 05/24/2017, Additional history exists COVID-19 Vaccine ( season) 2025 07/23/2020, 06/25/2020 Hepatitis B Vaccines Completed 05/10/1999, 1998, 1998 HIB Vaccines Completed 11/16/1999, 01/1999, 03/15/1999, Additional history exists Pneumococcal Vaccine Aged Out 08/02/2000 No long er eligible based on patient's age to complete this topic IPV Vaccines Completed 10/07/2003, 10/31, 03/15/1999, Additional history exists MMR Vaccines Completed 10/07/2003, 04/03/2000 Varicella Vaccines Completed 04/02/2011, 11/16/1999 HPV Vaccines Completed 01/07/2013, 03/04, 01/24/2008 Meningococcal Vaccine Completed 02/24/2015, 011 Hepatitis A Vaccines Aged Out No long er eligible based on patient's age to complete this topic Men B Vaccine Aged Out No longer elig ible based on patient's age to complete this topic Procedures * Due to [place] [employer] law, this organization might not be sharing sensitive test results. Procedure Name Priority Date/Time Associated Diagnosis Comments CHLAMYDIA AND GONORRHEA, AMPLIFIED Routine 12/07/2017 11:21 AM EDT Screen for sexually transmitted diseases from Last 3 Months or Most Recently Relevant to Health Maintenance Results * Due to [place] [employer] law, this organization might not be sharing sensitive test results. * Chlamydia and Gonorrhoea, Amplified (12/07/2017 11:21 AM EDT) Chlamydia Trachomatis, DNA Probe NEGATIVE (NEG) [facility] Comment: No Chlamydia Trachomatis RNA detected in this patient's sample (REFERENCE RANGE/NORMAL VALUE: NOT DETECTED) Note: This test uses hat finishing materials preparer- mediated amplification method to detect rRNA from C. Trachomatis URINE GC AMP PROBE NEGATIVE (NEG) [facility] Comment: No Neisseria Gonorrhoeae RNA detected in this patient's sample (REFERENCE RANGE/NORMAL VALUE: NOT DETECTED) NOTE: This test uses hat finishing materials preparer-mediated amplification method to detect rRNA from N.Gonorrhoeae. A negative result does not preclude infection. In the case of a negative urine result, testing of an endocervical(female) or urethral (male) specimen is recommended if there is high clinical suspicion of infection. Due to very high sensitivity of Nucleic Acid Amplification Test, false positive results may occur. Therefore, specimen handling is extremely important. In patients in whom the disease is unlikely, additional sample for testing should be considered after an initial positive result. The performance characteristics of this test have not been evaluated in children. The Aptima Combo2 assay is not intended for the evaluation of suspected sexual abuse or for other medico-legal indications. The ordering provider should assess if the patient had consensual sex without risk of sexual abuse. Consult the [facility] if needed. Contact phone number . Therapeutic failure or success cannot be determined with the Aptima Combo2 assay since nucleic acid may persist following appropriate antimicrobial therapy. The Centers for Disease Control and Prevention (CDC) recommends confirmatory retesting using culture or a different nucleic acid amplification test when positive results occur, if indicated. Testing performed or reported by [facility], a Service of [facility], [address] [place] [address] [place] [address] CLIA [id number] Rhiannon Johnson MD, PhD, Transcript Evaluator Urine 12/07/2017 11:2 1 AM EDT 12/07/2017 4:53 PM EDT us Anjali Bond MD LAB MICROBIOLOGY - GENERAL ORDER JOSE Final Result [facility] from Last 3 Months or Most Recently Relevant to Health Maintenance Insurance [employer]
--- OUTSIDE RECORDS SUMMARY | 2025-05-22 08:23 | XMS_ITS | Encounter Summary ---
Author Organization [facility] Address [address] [place] [id number] Phone Care Team Providers Care Plastic Surgery Coordinator Name Role Phone Anjali Bond MD Primary Care Provider [phone] Encounter Details Date Type Department Care Team (Late st Contact Info) Description 11/19/2017 [facility]version [facility]counter [facility] [id number] [place] [address] Anjali Bond MD [address] [place] [id number] Social History Tobacco Use Types Packs/Day Years Used Date Smoking Tobacco: Never Assessed Comments Unknown Sex and Gender Information Value Date Recorded Sex Assigned at Female 01/07/2020 10:09 AM EDT Legal Sex Female 6:11 PM EDT Gender Identity Female 01/07/2020 10:09 AM EDT Sexual Orientation Not on file documented as of this encounter Plan of Treatment Not on file documented as of this encounter Visit Diagnoses Not on filedocumented in this encounter Care Teams Plastic Surgery Coordinator Relationship Specialty Start Date End Date Anjali Bond MD [address] [place] [address] PCP - General 11/08/17 05/13/24 documented as of this encounter
== END 2025-05-22 08:26 | disposition home or self-care (01) ==
LOC: HO.HMCC 08:06
PROVIDERS: PCP Nurse Practitioner Family; Visit Provider Nurse Practitioner Family
DX: Z00.00 Encounter for general adult medical examination without abnormal findings (principal)